=== PATIENT | male | born 1945 | race Caucasian/White ===

== ENCOUNTER → 2019-11-25 07:14 | Outpatient (REF) | payer MEDICARE, BC, SELFPAY | LOC: ANHLAB 07:14 | PROVIDERS: Visit Provider Nurse Practitioner Family | DX: C44.311 Basal cell carcinoma of skin of nose (principal) | CPT/HCPCS: 88305; 88331 ==

== ENCOUNTER 2022-06-25 14:59 | Outpatient (NON) | payer MEDICARE, BC, SELFPAY | END 2022-06-25 15:00 | disposition home or self-care (01) | LOC: ANHLAB 15:00 | PROVIDERS: Visit Provider Surgery Plastic and Reconstructive Surgery | DX: C44.41 Basal cell carcinoma of skin of scalp and neck (principal) | CPT/HCPCS: 88305; 88331 ==